=== PATIENT | male | born 1985 | race Caucasian/White ===

== ENCOUNTER 2017-04-20 12:49 | Day surgery (SDC) | payer OTHER ==
[~2017-04-20] VITALS: Ht 177.8 cm; Wt 81.0 kg
[2017-04-20] MEDS ORDERED: ATOR40TA68 PO (13:20)
[2017-04-20 13:22] VITALS: Ht 177.8 cm; Wt 81.0 kg
[2017-04-20 13:39] VITALS: BP 121/79; PULSE 78; RESP 12
--- NOTE | 2017-04-20 14:38 | OPPN ---
Date/Time of Note Date/Time of Note DATE: 04/20/17 TIME: 14:37 Operative Report Preoperative Diagnosis Screening Postoperative Diagnosis Sigmoid polyp was removed Internal hemorrhoids Operation/Procedure Performed Colonoscopy and biopsy Surgeon see signature line grooming assistant None Anesthesia: moderate sedation Estimated blood loss: none Transfusion Required none Specimen Sigmoid polyp biopsy Grafts/Implants none Complications none DANI TAMAYO MD Apr 20, 2017 14:38
[2017-04-20 15:10] VITALS: BP 119/73; PULSE 72; RESP 15
[2017-04-20] MEDS ORDERED: FENTAnyl 50 MCG/ML VIAL ONE (15:11)
[2017-04-20] MEDS ORDERED: MIDAZOLAM 1 MG/ML 2 ML INJ ONE ×2 (15:11)
--- NOTE | 2017-04-21 03:11 | GILP ---
DATE OF PROCEDURE: NAME OF PROCEDURES: Colonoscopy and biopsy. SURGEON: Dani Prado MD PREOPERATIVE DIAGNOSES: 1. Screening colonoscopy. 2. Family history of colon cancer. POSTOPERATIVE DIAGNOSES 1. Colonoscopy all the way to the cecum. 2. Small sigmoid colon polyp was removed. 3. Internal hemorrhoids. INDICATION FOR THE PROCEDURE: Mr. Ambrosio Ramos is a 32-year-old male patient who had history of his father having colon cancer at a young age, so the patient was scheduled for screening colonoscopy. The procedure and possible complications are well explained to the patient. He understood and conse nted to the procedure. DESCRIPTION OF PROCEDURE: Under the influence of fentanyl and Versed, the colonoscope was carefully introduced in the rectum and under direct vision, it was advanced all the way to the cecum. FINDINGS: The patient had a small sigmoid colon polyp and it was removed using the biopsy forceps. He had internal hemorrhoids. He tolerated the procedure very well and there was no complication from the procedure. At the end o f the procedure, he was awake with stable vital signs and he was discharged home to the care of his family. IMPRESSION: 1. Colonoscopy all the way to the cecum. 2. Small sigmoid colon polyp was removed using the biopsy forceps. 3. Internal hemorrhoids. PLAN: Next screening colonoscopy in 5 years. Dictated By: DANI PORTILLO/DANNY Conf#: [id number] DID#: [id number]
== END 2017-04-20 15:20 | disposition home or self-care (01) ==
LOC: GIL 12:49
PROVIDERS: ATTEND Internal Medicine Gastroenterology
DX: Z12.11 Encounter for screening for malignant neoplasm of colon (principal); Z80.0 Family history of malignant neoplasm of digestive organs; K64.8 Other hemorrhoids; D12.5 Benign neoplasm of sigmoid colon
CPT/HCPCS: 88305; J2250; J3010